=== PATIENT | male | born 1960 | race Caucasian/White ===

== ENCOUNTER 2025-02-24 18:53 | Emergency (ER) | payer MEDICARE, MEDICAID ==
[2025-02-24 18:55] VITALS: PULSE 102; RESP 18; O2SAT 96
== END 2025-02-24 19:40 | disposition left against medical advice (07) ==
LOC: ER 18:53
DX: R11.2 Nausea with vomiting, unspecified (principal); Z53.21 Procedure and treatment not carried out due to patient leaving prior to being seen by health care provider

== ENCOUNTER 2025-06-22 10:16 | Emergency (ER) | payer MEDICARE, MEDICAID ==
[~2025-06-22] VITALS: Ht 170.2 cm; Wt 73.0 kg
[2025-06-22 10:36] VITALS: O2SAT 97
[2025-06-22 11:16] LABS: BASOPHILS % 0.3 % (0.0-2.0); EOSINOPHILS % 0.1 % (0.0-5.0); HEMATOCRIT. 47.9 % (42.0-52.0); HEMOGLOBIN. 16.5 g/dL (14.0-18.0); LYMPHOCYTES % 8.4 % (20.0-50.0); MEAN PLATELET VOLUME 7.7 fl (7.4-10.4); MONOCYTES % 6.3 % (2.0-8.0); NEUTROPHILS % 84.9 % (40.0-76.0); PLATELET 223 x1000/uL (130-400); RED BLOOD CELL COUNT 5.39 mill/uL (4.7-6.1); RED CELL DISTRIBUTION WIDTH 13.9 % (11.6-14.6)
[2025-06-22 11:42] LABS: CREATININE 0.8 mg/dL (0.6-1.3); UREA NITROGEN BLOOD 6 mg/dL (9-23)
[2025-06-22 11:45] LABS: CLARITY URINE CLEAR (CLEAR); COLOR URINE YELLOW (YELLOW); GLUCOSE URINE NEGATIVE (NEGATIVE); KETONES URINE NEGATIVE (NEGATIVE); LEUKOCYTE ESTERASE URINE NEGATIVE (NEGATIVE); NITRITE URINE NEGATIVE (NEGATIVE); OCCULT BLOOD URINE 3+ (NEGATIVE); PH URINE 6.0 (4.5-8.0); PROTEIN URINE NEGATIVE (NEGATIVE); SPECIFIC GRAVITY URINE 1.009 (1.005-1.030); UROBILINOGEN URINE 0.2 E.U./dL (0.2-1.0)
[2025-06-22] MEDS ORDERED: TAMS-54 MT (12:13)
[2025-06-22 12:15] LABS: MUCUS URINE TRACE /lpf (NONE/TRACE); SQUAMOUS EPITHELIAL CELL URINE RARE /lpf (RARE/1+)
[2025-06-22 12:16] LABS: BACTERIA URINE TRACE; RBC URINE 50-100 /hpf (0-2)
[2025-06-22 15:09] VITALS: BP 168/101; PULSE 88; RESP 16; TEMP 37; O2SAT 97
== END 2025-06-22 15:13 | disposition home or self-care (01) ==
LOC: ER 10:16
DX: R39.0 Extravasation of urine (principal); R33.9 Retention of urine, unspecified; I11.9 Hypertensive heart disease without heart failure; Z46.6 Encounter for fitting and adjustment of urinary device
CPT/HCPCS: 36415; 51702; 74176; 80048; 81003; 85025; 93005; 99284

== ENCOUNTER 2025-07-17 13:18 | Emergency (ER) | payer MEDICARE, MEDICAID ==
[~2025-07-17] VITALS: Ht 170.2 cm; Wt 73.0 kg
[~2025-07-17 13:18] MED LIST: TAMS-54 MT
[2025-07-17 13:31] VITALS: O2SAT 96
[2025-07-17 14:39] LABS: CLARITY URINE TURBID (CLEAR); COLOR URINE YELLOW (YELLOW); GLUCOSE URINE NEGATIVE (NEGATIVE); KETONES URINE TRACE (NEGATIVE); LEUKOCYTE ESTERASE URINE 3+ (NEGATIVE); NITRITE URINE NEGATIVE (NEGATIVE); OCCULT BLOOD URINE 2+ (NEGATIVE); PH URINE 6.0 (4.5-8.0); PROTEIN URINE 1+ (NEGATIVE); SPECIFIC GRAVITY URINE 1.015 (1.005-1.030); UROBILINOGEN URINE 1.0 E.U./dL (0.2-1.0)
[2025-07-17] MEDS ORDERED: CEPH500C2 MT (15:04)
[2025-07-17 15:07] LABS: WBC URINE TNTC /hpf (0-2)
[2025-07-17 15:08] LABS: BACTERIA URINE 4+; SQUAMOUS EPITHELIAL CELL URINE NONE SEEN /lpf (RARE/1+)
[2025-07-17 15:28] VITALS: BP 125/84; PULSE 81; RESP 17; TEMP 37.1; O2SAT 96
[2025-07-22] MEDS ORDERED: POLY17PO43 PO (12:27)
[2025-07-22] MEDS ORDERED: PHEN100C4 PO (12:27)
[2025-07-22] MEDS ORDERED: LEVO750T68 MT (12:27)
[2025-07-22] MEDS ORDERED: AMLO10TA80 PO (12:27)
[2025-07-22] MEDS ORDERED: FINA5TAB11 PO (12:27)
[2025-07-22] MEDS ORDERED: LIP40 PO (12:27)
[2025-07-22] MEDS ORDERED: TAMS-54 PO (12:27)
[2025-07-23] MEDS ORDERED: DICL50TA9 PO (12:19)
== END 2025-07-17 15:29 | disposition home or self-care (01) ==
LOC: ER 13:18
DX: N39.0 Urinary tract infection, site not specified (principal); I10 Essential (primary) hypertension; N40.1 Benign prostatic hyperplasia with lower urinary tract symptoms
CPT/HCPCS: 81003; 87077; 87186; 99283